=== PATIENT | female | born 1960 | race Caucasian/White ===

== ENCOUNTER 2018-10-06 10:20 | Emergency (ER) | payer OTHER ==
[2018-10-06 10:26] VITALS: BP 137/65
[2018-10-06] MEDS ORDERED: FENTANYL CITRATE INJ/PF 100 MCG/2 ML AMPUL IM ONE (10:47)
--- NOTE | 2018-10-06 11:01 | ER Document Report ---
HPI - HPI Time Seen by Provider: 10/06/18 10:34 Pain Level: 5 Notes: Patient is a 58-year-old female with no significant past medical history who presents complaining of left ring finger pain and swelling status post injury yesterday. Patient states that she got her ring caught on something when she was getting on a boat which caused pain and swelling to her PIP joint area. Patient states that since then she has not been able to get her ring off of her finger. Pain does not radiate. Pain is described as a throb/ache. She has no other concerns or complaints at this time. Denies any headache, fever, URI, sore throat, chest pain, palpitations, syncope, cough, shortness of breath, wheeze, dyspnea, abdominal pain, nausea/vomiting/diarrhea, urinary retention, dysuria, hematuria, numbness/tingling, muscle paralysis/weakness, or rash. - ROS Systems Reviewed and Negative: Yes All other systems reviewed and negative - CONSTITUTIONAL Constitutional: DENIES: Fever, Chills - EENT EENT: DENIES: Sore Throat, Ear Pain, Eye problems - NEURO Neurology: DENIES: Headache, Weakness, Vision blurred, Dizzinesss / Vertigo - CARDIOVASCULAR Cardiovascular: DENIES: Chest pain - RESPIRATORY Respiratory: DENIES: Trouble Breathing, Coughing - GASTROINTESTINAL Gastrointestinal: DENIES: Abdominal Pain, Black / Bloody Stools - URINARY Urinary: DENIES: Dysuria, Urgency, Frequency - MUSCULOSKELETAL Musculoskeletal: REPORTS: Extremity pain - LEFT 4TH FINGER Past Medical History - Social History Smoking Status: Never Smoker Chew tobacco use (# tins/day): No Frequency of alcohol use: Heavy Drug Abuse: None Family History: Reviewed & Not Pertinent Patient has suicidal ideation: No Patient has homicidal ideation: No Renal/ Medical History: Denies: Hx Peritoneal Dialysis Vertical Provider Document - CONSTITUTIONAL Agree With Documented VS: Yes Notes: PHYSICAL EXAMINATION: GENERAL: Well-appearing, well-nourished and in no acute distress. HEAD: Atraumatic, normocephalic. NECK: Normal range of motion, supple without lymphadenopathy. No midline tenderness. LUNGS: Breath sounds clear to auscultation bilaterally and equal. No wheezes rales or rhonchi. HEART: Regular rate and rhythm without murmurs, rubs, gallops. Musculoskeletal: Lt hand/wrist: + swelling noted to the PIP joint left 4th digit. Ring is stuck proximally. + associated tenderness and LROM at the PIP joint due to swelling. N/V intact distal. FROM to passive/active at the wrist/fingers otherwise. Strength 5+/5. No scaphoid tenderness. Extremities: No cyanosis, clubbing, or edema b/l. Peripheral pulses 2+. Capillary refill less than 3 seconds. NEUROLOGICAL: Normal speech, normal gait. Normal sensory, motor exams otherwise unremarkable PSYCH: Normal mood, normal affect. SKIN: see above. No rash - INFECTION CONTROL TRAVEL OUTSIDE OF THE [place] IN LAST 30 DAYS: No Course - Re-evaluation Re-evalutation: 10/06/18 11:00 Pain medication provided. Conservative measures were performed first with no success at removing the ring from the finger. Patient did allow for the ring to be cut and was done successfully without any complications. X-ray has been ordered to further evaluate. 10/06/18 11:47 Patient is an afebrile, well-hydrated, 58-year-old female who presents to the ED with left finger pain which I suspect to be a sprain/strain versus contusion. Vitals are acceptable without any significant tachycardia, tachypnea, or hypoxia. PE is otherwise unremarkable for any neurovascular compromise, obvious tendon/ligament rupture, obvious fracture/dislocation, septic joint. X-ray was unremarkable for any acute pathology. Patient is nontoxic-appearing. No other labs or imaging warranted at this time based on H&P. Conservative measures otherwise for symptoms. Recheck with your PCM in 3-5 days. Consider consult orthopedics. Return to the ED with any worsening/concerning symptoms otherwise as reviewed in discharge. Patient is in agreement. - Vital Signs Vital signs: Temp Pulse Resp BP Pulse Ox 97.8 F 85 18 137/65 H 97 10/06/18 10:24 10/06/18 10:24 10/06/18 10:24 10/06/18 10:24 10/06/18 10:24 Procedures - Additional Procedures Ring removal from finger Time performed: 10:58 Additional Procedures: Other - Ring was removed successfully utilizing a ring cutter without any complications. Patient tolerated procedure well. Discharge - Discharge Clinical Impression: Finger pain, left Condition: Stable Disposition: HOME, SELF-CARE Additional Instructions: Rest, Ice, Compression, Elevation Tylenol/ibuprofen as needed Light stretches daily Strength exercises as able Moist heat and massage may help F/u with your PCP in 3-5 days for a recheck Consider consult(s) with Orthopedics/physical therapy for ongoing/worsening symptoms Return to the ED with any worsening symptoms and/or development of fever, headache, chest pain, palpitations, syncope, shortness of breath, trouble breathing, abdominal pain, n/v/d, muscle weakness/paralysis, numbness/tingling, swelling, redness, or other worsening symptoms that are concerning to you. Forms: Elevated Blood Pressure Referrals: [facility] [Provider Group] - Follow up as needed
--- NOTE | 2018-10-06 11:42 | RADIOLOGY REPORT (SQ) ---
EXAM DESCRIPTION: FINGER LEFT COMPLETED DATE/TIME: 10/06/2018 11:34 am REASON FOR STUDY: left ring finger injury COMPARISON: None. NUMBER OF VIEWS: Three views. TECHNIQUE: AP, lateral, and oblique images acquired of the left fourth finger. LIMITATIONS: None. FINDINGS: MINERALIZATION: Normal. BONES: No acute fracture or dislocation. No worrisome bone lesions. SOFT TISSUES: Swelling. No foreign body. OTHER: No other significant finding. IMPRESSION: Soft tissue injury. TECHNICAL DOCUMENTATION: JOB ID: [id number] [employer]- All Rights Reserved Reading location - IP/workstation name: [email or web address]
== END 2018-10-06 11:56 | disposition home or self-care (01) ==
LOC: ER 10:20
DX: S60.455A Superficial foreign body of left ring finger, initial encounter (principal); M79.645 Pain in left finger(s); M79.89 Other specified soft tissue disorders; W23.0XXA Caught, crushed, jammed, or pinched between moving objects, initial encounter
CPT/HCPCS: 99283; 96372; 73140; J3010